=== PATIENT | female | born 1990 | race Caucasian/White ===

== ENCOUNTER 2022-07-24 17:14 | Emergency (ER) | payer BC ==
[~2022-07-24] VITALS: Ht 160 cm; Wt 74.4 kg
[2022-07-24 17:30] VITALS: BP_SYST 130
--- NOTE | 2022-07-24 17:37 | NUR ---
Patient to ER bed 05 to gown for evaluation. Side rails up.
--- NOTE | 2022-07-24 17:40 | NUR ---
PATIENT SENT FROM HER OB FOR R/O ECTOPIC WITH VAGINAL SPOTTING. Patient denies any pain at this time. aox 4 ambulatory from home. vss
--- NOTE | 2022-07-24 17:46 | NUR ---
ER Dr. STOKES at bedside examining patient.
--- NOTE | 2022-07-24 18:00 | NUR ---
PHLEB AT BEDSIDE FOR BLOOD DRAW
--- NOTE | 2022-07-24 18:05 | NUR ---
PATIENT OFF UNIT TO ULTRASOUND FOR OB STUDY
[2022-07-24 18:15] LABS: BASOPHILS % (AUTO) 0.5 % (0.0-2.0); EOSINOPHILS # (AUTO) 0.7 K/uL (0.0-0.4); EOSINOPHILS % (AUTO) 8.1 % (0.0-4.0); HEMATOCRIT 37.7 % (36-48); HEMOGLOBIN 13.2 g/dL (12.0-16.0); LYMPHOCYTES % (AUTO) 24.7 % (20.5-51.5); MEAN CORPUSCULAR HEMOGLOBIN 29 pg (27-31); MEAN CORPUSCULAR HGB CONC 35 % (32-36); MEAN CORPUSCULAR VOLUME 84 fL (79.0-98.0); MONOCYTES # (AUTO) 0.6 K/uL (0.0-1.0); MONOCYTES % (AUTO) 7.3 % (1.7-9.3); NEUTROPHILS # (AUTO) 4.8 K/uL (1.8-7.7); NEUTROPHILS % (AUTO) 59.4 % (40.0-70.0); PLATELET COUNT (AUTO) 256 K/uL (130-430); RED BLOOD CELL COUNT(AUTO) 4.49 MIL/uL (4.2-6.2); RED CELL DISTRIBUTION WIDTH 12.4 % (9.0-15.0)
--- NOTE | 2022-07-24 18:30 | NUR ---
patient returned from ultrasound
--- NOTE | 2022-07-24 18:37 | NUR ---
ER at bedside examining patient.
[2022-07-24 18:39] LABS: PROTHROMBIN TIME 10.3 SECS (9.5-12.5)
[2022-07-24 18:40] LABS: BILIRUBIN,URINE NEGATIVE (NEGATIVE); BLOOD, URINE 3+ (NEGATIVE); CLARITY/URINE CLOUDY (CLEAR); COLOR,URINE BROWN (YELLOW); GLUCOSE,URINE NEGATIVE (NEGATIVE); KETONES,URINE TRACE (NEGATIVE); LEUKOCYTE ESTERASE ,URINE TRACE (NEGATIVE); NITRITE, URINE POSITIVE (NEGATIVE); PROTEIN URINE 2+ (NEGATIVE)
[2022-07-24 18:54] LABS: BACTERIA,URINE MODERATE /HPF (None Seen)
[2022-07-24 19:55] LABS: RBC,URINE 80-100 /HPF (0-3)
[2022-07-24 19:56] LABS: MUCUS,URINE None Seen /LPF (None Seen); WBC,URINE 20-50 /HPF (0-3)
[2022-07-24] MEDS ORDERED: HYDROcodone/ACETAMIN 5-325 MG TAB (NORCO/ VICODIN) PO ONE (21:15)
--- NOTE | 2022-07-25 00:20 | NUR ---
rhogam given IM
[2022-07-25] MEDS ORDERED: CEPH-548 PO (00:26)
[2022-07-25] MEDS ORDERED: HYDR-3917 PO (00:26)
[2022-07-25] MEDS ORDERED: cephALEXin 500 MG CAPSULE PO ONE (00:30)
== END 2022-07-25 01:45 | disposition home or self-care (01) ==
LOC: SED 17:14
DX: O20.9 Hemorrhage in early pregnancy, unspecified (principal); O26.891 Other specified pregnancy related conditions, first trimester; O23.41 Unspecified infection of urinary tract in pregnancy, first trimester; O28.3 Abnormal ultrasonic finding on antenatal screening of mother; N39.0 Urinary tract infection, site not specified; Z3A.01 Less than 8 weeks gestation of pregnancy; Z79.899 Other long term (current) drug therapy
CPT/HCPCS: 99284; 81000; 84702; 85025; 85610; 85730; 86900; 86901; 87086; 36415; 76802; 81025; J2790

== ENCOUNTER 2022-07-31 21:35 | Emergency (ER) | payer BC, MEDICAID ==
[~2022-07-31] VITALS: Ht 162.6 cm; Wt 73.0 kg
[~2022-07-31 21:35] MED LIST: CEPH-548 PO; HYDR-3917 PO
[2022-07-31 21:44] VITALS: BP_SYST 115
--- NOTE | 2022-07-31 21:59 | NUR ---
pt bib family fr home c/o fever, weakness, per pt she was diagnosed w/ extopic on saturday 07/29 & she was given a shot Methotrexate. since then, per pt she's been having diarrhea, severe nausea, denies vomiting, 10 migraine, 10 rlq abd pain that radiates to r flank pain. nkda. surgical hx: d & c 15 yrs ago.
--- NOTE | 2022-07-31 22:00 | NUR ---
Received pt in bed 5, c/o of abdominal pain radiating to flank area. No SOB noted.
--- NOTE | 2022-07-31 22:05 | NUR ---
ER Dr. Vickers at bedside examining patient.
[2022-07-31] MEDS ORDERED: NS 1000 ML IV.SOLN IV ONE (22:15)
[2022-07-31] MEDS ORDERED: MORPHINE 4 MG INJ. 4 MG/ML VIAL IVP ONE (22:30)
[2022-07-31] MEDS ORDERED: ACETAMINOPHEN 500 MG TABLET PO ONE (22:30)
[2022-07-31] MEDS ORDERED: cefTRIAXone 1 GM in D5W 50 ML IV ONE (22:30)
[2022-07-31] MEDS ORDERED: ONDANSETRON HCL 4 MG/2 ML VIAL IVP ONE (22:30)
[2022-07-31] MEDS ORDERED: cefTRIAXone 1 GM VIAL ONE (22:38)
[2022-07-31 22:41] LABS: BASOPHILS % (AUTO) 0.2 % (0.0-2.0); EOSINOPHILS # (AUTO) 0.3 K/uL (0.0-0.4); EOSINOPHILS % (AUTO) 2.1 % (0.0-4.0); HEMOGLOBIN 12.5 g/dL (12.0-16.0); LYMPHOCYTES # (AUTO) 0.9 K/uL (1.0-5.5); LYMPHOCYTES % (AUTO) 7.3 % (20.5-51.5); MEAN CORPUSCULAR HEMOGLOBIN 29 pg (27-31); MEAN CORPUSCULAR HGB CONC 35 % (32-36); MEAN CORPUSCULAR VOLUME 84 fL (79.0-98.0); MONOCYTES # (AUTO) 0.3 K/uL (0.0-1.0); MONOCYTES % (AUTO) 2.8 % (1.7-9.3); NEUTROPHILS # (AUTO) 10.4 K/uL (1.8-7.7); NEUTROPHILS % (AUTO) 87.6 % (40.0-70.0); PLATELET COUNT (AUTO) 213 K/uL (130-430); RED BLOOD CELL COUNT(AUTO) 4.29 MIL/uL (4.2-6.2); RED CELL DISTRIBUTION WIDTH 12.4 % (9.0-15.0); WHITE BLOOD COUNT (AUTO) 11.9 K/uL (4.8-10.8)
[2022-07-31 22:59] LABS: ANION GAP 7 (5-15); CALCIUM 8.5 mg/dL (8.4-11.0); CHLORIDE 104 mmol/L (98-107); CREATININE 0.89 mg/dL (0.55-1.30); GFR AFRICAN AMERICAN 94 mL/min (>90); GLUCOSE 101 mg/dL (70-99); UREA NITROGEN, BLOOD 10 mg/dL (8-21)
[2022-07-31] MEDS ORDERED: KETOROLAC TROMETHAMINE 30 MG VIAL IVP ONE (23:00)
[2022-07-31] MEDS ORDERED: KETOROLAC TROMETHAMINE 30 MG VIAL ONE (23:00)
[2022-07-31 23:06] LABS: ALANINE AMINOTRANSFERASE 192 U/L (12-78); ALBUMIN 3.1 g/dL (3.4-4.8); ASPARTATE AMINOTRANSFERASE 133 U/L (10-37); TOTAL BILIRUBIN 0.4 mg/dL (0.0-1.0)
[2022-07-31 23:09] LABS: BILIRUBIN,URINE NEGATIVE (NEGATIVE); BLOOD, URINE 3+ (NEGATIVE); CLARITY/URINE CLEAR (CLEAR); COLOR,URINE YELLOW (YELLOW); GLUCOSE,URINE NEGATIVE (NEGATIVE); KETONES,URINE NEGATIVE (NEGATIVE); LEUKOCYTE ESTERASE ,URINE NEGATIVE (NEGATIVE); NITRITE, URINE NEGATIVE (NEGATIVE); PROTEIN URINE NEGATIVE (NEGATIVE); UROBILINOGEN,URINE 0.2 (0.2-1.0)
[2022-07-31 23:24] LABS: BACTERIA,URINE RARE /HPF (None Seen); MUCUS,URINE None Seen /LPF (None Seen); WBC,URINE 0-3 /HPF (0-3)
[2022-08-01] MEDS ORDERED: OXYC-128 PO (00:07)
[2022-08-01] MEDS ORDERED: IBUP-1969 PO (00:07)
[2022-08-01] MEDS ORDERED: AMOX-520 PO (00:07)
[2022-08-01] MEDS ORDERED: OXYCODONE/ACETAMINOPHEN 5-325 TABLET PO ONE (00:15)
[2022-08-01 00:59] VITALS: BP_SYST 115
== END 2022-08-01 00:59 | disposition home or self-care (01) ==
LOC: SED 21:35
DX: O00.90 Unspecified ectopic pregnancy without intrauterine pregnancy (principal); R07.0 Pain in throat; R50.9 Fever, unspecified; Z79.899 Other long term (current) drug therapy; Z20.822 Contact with and (suspected) exposure to COVID-19
CPT/HCPCS: 99285; 74176; 96365; 96375; 76830; 76857; 71045; 87426; 80053; 81000; 84702; 85025; 87040; 87086; 84484; 36415; 93005; 76376; 83605; 87804 ×2; J0696; J1885; J2405; J2270